=== PATIENT | female | born 1985 | race Caucasian/White ===

== ENCOUNTER 2017-07-30 07:44 | Outpatient (CLI) | payer BC ==
[2017-07-30] MEDS ORDERED: DULCOLAX PR ONE (08:32)
--- NOTE | 2017-07-30 11:26 | Fluoroscopy Report ---
FLUOROSCOPY DEFAGRAM History: Constipation. Findings: 36 fluoroscopic images were captured during this exam. [employer] Lead film demonstrates no evidence for bowel obstruction or rectal mass/ulceration. Lateral cine images were obtained during defecation. The images demonstrate a moderate to large rectocele which does not completely empty. There is otherwise near complete emptying of the rectum. There is no evidence for enterocele or rectal prolapse. Impression: Moderate to large rectocele which does not completely empty.
== END 2017-07-30 07:45 | disposition home or self-care (01) ==
LOC: FLUORO 07:44
PROVIDERS: ATTEND Internal Medicine Gastroenterology
DX: N81.6 Rectocele (principal); K59.00 Constipation, unspecified
CPT/HCPCS: 74270; Q9963